=== PATIENT | male | born 2000 | race African-American/Black ===

== ENCOUNTER 2022-09-28 22:17 | Emergency (ER) | payer MEDICAID, OTHER ==
[~2022-09-28] VITALS: Ht 180.3 cm; Wt 68.0 kg
[2022-09-28 22:26] VITALS: BP 136/89
--- NOTE | 2022-09-28 22:39 | ED Lower Extremity ---
General Stated Complaint: RIGHT SIDE GROIN PAIN Source: patient Exam Limitations: no limitations History of Present Illness Date Seen by Provider: Sep 28, 2022 Time Seen by Provider: 22:25 Initial Comments 22-year-old male presents to the emergency department today for right groin pain. He states especially after hard workouts he feels a bulge in the area as well. He does run track and it frequently happens after running hard. He denies any painful urination, changes in bowels. No fevers or chills. Symptoms for 2 to 3 weeks now. Thinks he may have a hernia. All other systems reviewed and negative except documented per HPI. Voice recognition software was used to help create this chart Allergies and Home Medications Patient Home Medication List Home Medication List Reviewed: Yes Review of Systems Constitutional: see HPI Past [id number]-[id number] Hx Patient Social History Tobacco Use?: No Use of E-Cig and/or Vaping dev: No Substance use?: No Alcohol Use?: No Past Medical History Surgery/Hospitalization HX: No known medical or surgical history Family Medical History Reviewed Nursing Family Hx No Pertinent Family Hx Physical Exam Vital Signs Capillary Refill : Height, Weight, BMI Height: '" Weight: lbs. oz. kg; BMI Method: General Appearance: WD/WN, no apparent distress Cardiovascular: regular rate, rhythm, no murmur Respiratory: chest non-tender, lungs clear, normal breath sounds, no respiratory distress, no accessory muscle use Gastrointestinal: normal bowel sounds, non tender, soft, no organomegaly, other (Small inguinal hernia palpable. Chest medial to the inguinal ligament on the right side. It is really only palpable with Valsalva. No testicular pain.) Neurologic/Psychiatric: alert, normal mood/affect, oriented x 3 Skin: normal color, warm/dry Progress/Results/Core Measures Results/Orders My Orders Orders - AARONGARRY FLORES DO Ua Culture If Indicated (09/28/22 22:27) Departure Communication (Admissions) Patient is hemodynamically stable. Is a small palpable inguinal hernia with Valsalva maneuver this time. No other acute exam findings. No evidence for incarceration, strangulation. UA is negative. No testicular or penile symptoms. No evidence for STD, testicular torsion. Impression Primary Impression: Right inguinal hernia Disposition: HOME, SELF-CARE Condition: Stable Departure-Patient Inst. Referrals: LYNN ROWE DO NO,LOCAL PHYSICIAN (PCP) Primary Care Physician Patient Instructions: Groin Hernias Add. Discharge Instructions: You were seen in the emergency department today for right groin pain. As discussed I think you have a hernia in the area. I have given you the name of a general surgeon you should call to schedule follow-up appointment. Alternate Tylenol and ibuprofen as needed for pain. Return to the ER immediately if you are unable to have a bowel movement, have severe pain or changes in your skin overlying the area. GARRY WALKER DO Sep 28, 2022 22:39
[2022-09-28 22:44] LABS: BILIRUBIN,URINE NEGATIVE (NEGATIVE); CLARITY,URINE CLEAR; COLOR,URINE YELLOW; GLUCOSE, URINE (UA) NEGATIVE (NEGATIVE); KETONES,URINE NEGATIVE (NEGATIVE); LEUKOCYTE ESTERASE ,URINE NEGATIVE (NEGATIVE); NITRITE,URINE NEGATIVE (NEGATIVE); PH,URINE 6.5 (5-9); PROTEIN,URINE NEGATIVE (NEGATIVE)
[2022-09-28 22:51] LABS: BACTERIA,URINE NEGATIVE /HPF; RBC,URINE RARE /HPF; WBC,URINE 0-2 /HPF
[2022-09-28 22:56] LABS: SQUAMOUS EPITHELIAL CELL,UR RARE /HPF
[2022-09-28 22:57] LABS: URINE OTHER RARE SPERMATOZOA /HPF
== END 2022-09-28 23:08 | disposition home or self-care (01) ==
LOC: ER FS 22:21
DX: K40.90 Unilateral inguinal hernia, without obstruction or gangrene, not specified as recurrent (principal); Z28.310 Unvaccinated for COVID-19
CPT/HCPCS: 81000; 99282